=== PATIENT | female | born 1965 | race Caucasian/White ===

== ENCOUNTER → 2016-04-27 | Outpatient (CLI) | payer OTHER ==
[~2016-04-27] MED LIST: ANUSOL-HC SUPPO25 MG RC; ASACOL; ASACOL PO; COLACE 100100 MG/CAP PO; LAMICTAL150 MG PO; LIALDA 1.2 GM1.2 GM PO; LUNESTA3 MG PO; NORCO 325 MG-51 TAB PO; PROMETHAZINE12.5 M5 PO; [UNRECOGNIZED DRUG - REMARK]
== END ==
LOC: BHSO 15:01
DX: F33.1 Major depressive disorder, recurrent, moderate (principal)

== ENCOUNTER → 2016-05-19 | Outpatient (CLI) | payer OTHER | LOC: BHSO 08:17 | DX: F33.1 Major depressive disorder, recurrent, moderate (principal) ==

== ENCOUNTER → 2016-07-01 | Outpatient (CLI) | payer OTHER | LOC: BHSO 11:04 | DX: F33.0 Major depressive disorder, recurrent, mild (principal) ==

== ENCOUNTER → 2016-10-01 | Outpatient (CLI) | payer OTHER | LOC: BHSO 14:59 | DX: F41.1 Generalized anxiety disorder (principal) ==

== ENCOUNTER → 2016-11-06 | Outpatient (CLI) | payer OTHER | LOC: BHSO 10:05 | DX: F41.1 Generalized anxiety disorder (principal) ==

== ENCOUNTER → 2017-02-01 | Outpatient (CLI) | payer OTHER | LOC: BHSO 12:59 | DX: F41.1 Generalized anxiety disorder (principal) ==

== ENCOUNTER → 2017-05-04 | Outpatient (CLI) | payer OTHER | LOC: BHSO 09:09 | DX: F41.1 Generalized anxiety disorder (principal) ==

== ENCOUNTER → 2017-06-29 | Outpatient (CLI) | payer OTHER | LOC: BHSO 13:00 | DX: F41.1 Generalized anxiety disorder (principal) ==

== ENCOUNTER → 2017-07-26 | Outpatient (CLI) | payer OTHER | LOC: BHSO 16:00 | DX: F33.1 Major depressive disorder, recurrent, moderate (principal) ==

== ENCOUNTER → 2017-09-30 | Outpatient (CLI) | payer OTHER | LOC: BHSO 13:54 | DX: F41.1 Generalized anxiety disorder (principal) ==

== ENCOUNTER → 2017-10-08 | Outpatient (CLI) | payer OTHER | LOC: BHSO 15:11 | DX: F41.1 Generalized anxiety disorder (principal) ==

== ENCOUNTER → 2017-10-14 | Outpatient (CLI) | payer OTHER | LOC: BHSO 13:03 | DX: F41.1 Generalized anxiety disorder (principal) ==

== ENCOUNTER → 2017-10-20 | Outpatient (CLI) | payer OTHER | LOC: BHSO 15:59 | DX: F41.1 Generalized anxiety disorder (principal) ==

== ENCOUNTER → 2017-11-02 | Outpatient (CLI) | payer OTHER | LOC: BHSO 15:59 | DX: F41.1 Generalized anxiety disorder (principal) ==

== ENCOUNTER → 2017-11-24 | Outpatient (CLI) | payer OTHER | LOC: BHSO 16:05 | DX: F33.1 Major depressive disorder, recurrent, moderate (principal) ==

== ENCOUNTER → 2017-12-07 | Outpatient (CLI) | payer OTHER | LOC: BHSO 15:08 | DX: F41.1 Generalized anxiety disorder (principal) ==

== ENCOUNTER → 2018-01-10 | Outpatient (CLI) | payer OTHER | LOC: BHSO 16:06 | DX: F41.1 Generalized anxiety disorder (principal) ==

== ENCOUNTER → 2018-02-04 | Outpatient (CLI) | payer OTHER | LOC: BHSO 14:00 | DX: F41.1 Generalized anxiety disorder (principal) ==

== ENCOUNTER → 2018-04-13 | Outpatient (CLI) | payer OTHER | LOC: BHSO 11:05 | DX: F33.1 Major depressive disorder, recurrent, moderate (principal) ==

== ENCOUNTER → 2018-04-25 | Outpatient (CLI) | payer OTHER | LOC: BHSO 16:05 | DX: F33.0 Major depressive disorder, recurrent, mild (principal) ==

== ENCOUNTER → 2018-05-12 | Outpatient (CLI) | payer OTHER | LOC: BHSO 16:28 | DX: F41.1 Generalized anxiety disorder (principal) | CPT/HCPCS: G0463 ==

== ENCOUNTER → 2018-05-13 | Outpatient (CLI) | payer OTHER | LOC: BHSO 16:05 | DX: F41.1 Generalized anxiety disorder (principal) ==

== ENCOUNTER → 2018-09-12 | Outpatient (CLI) | payer OTHER | LOC: BHSO 11:05 | DX: F41.1 Generalized anxiety disorder (principal) ==

== ENCOUNTER → 2018-09-19 | Outpatient (CLI) | payer OTHER | LOC: BHSO 10:54 | DX: F41.1 Generalized anxiety disorder (principal) ==

== ENCOUNTER → 2018-09-29 | Outpatient (CLI) | payer OTHER | LOC: BHSO 15:04 | DX: F41.1 Generalized anxiety disorder (principal) ==

== ENCOUNTER → 2018-10-18 | Outpatient (CLI) | payer OTHER | LOC: BHSO 09:04 | DX: F41.1 Generalized anxiety disorder (principal) ==

== ENCOUNTER → 2018-11-01 | Outpatient (CLI) | payer OTHER | LOC: BHSO 10:06 | DX: F41.1 Generalized anxiety disorder (principal) ==

== ENCOUNTER → 2019-02-10 | Outpatient (CLI) | payer OTHER | LOC: BHSO 16:03 | DX: F41.1 Generalized anxiety disorder (principal) ==

== ENCOUNTER → 2019-03-20 | Outpatient (CLI) | payer OTHER | LOC: BHSO 15:52 | DX: F41.1 Generalized anxiety disorder (principal) ==

== ENCOUNTER 2019-03-26 17:50 | Emergency (ER) | payer OTHER ==
[~2019-03-26] VITALS: Ht 162.6 cm; Wt 55.0 kg
[2019-03-26 18:50] LABS: ALANINE AMINOTRANSFERASE 35 U/L (9-52); ALBUMIN 4.4 gm/dL (3.5-5.0); ALKALINE PHOSPHATASE 70 U/L (50-136); ANION GAP 8 mmol/L (7-16); AST,SGOT 28 U/L (15-37); BILIRUBIN,TOTAL 0.6 mg/dL (0.0-1.0); BLOOD UREA NITROGEN 12 mg/dL (7-17); CALCIUM 9.8 mg/dL (8.4-10.2); CARBON DIOXIDE 24 mmol/L (22-30); CHLORIDE 109 mmol/L (98-107); CREATININE, serum 0.58 (0.52-1.25); GLUCOSE 108 mg/dL (74-106); POTASSIUM 3.8 mmol/L (3.4-5.0); SODIUM 141 mmol/L (137-145)
[2019-03-26 18:51] LABS: C-REACTIVE PROTEIN < 0.5 mg/dL (0.0-0.9)
[2019-03-26 19:21] LABS: BASO % 0.3 % (0.0-2.0); GRAN # 6.2 (1.4-6.5); GRAN % 88.8 % (42.2-75.2); HEMATOCRIT 38.8 % (37.0-47.0); HEMOGLOBIN 12.9 g/dl (12.5-16.0); LYMPH # 0.6 (1.2-3.4); LYMPH % 7.9 % (20.0-51.0); MEAN CELL VOLUME 91 fl (80.0-100.0); MEAN CORPUSCULAR HEMOGLOBIN 30 pg (27.0-31.0); MEAN CORPUSCULAR HGB CONC 33 g/dl (33.0-37.0); MEAN PLATELET VOLUME 9.3 fl (7.4-10.4); MONO # 0.2 (0.1-0.6); MONO % 2.6 % (1.7-9.3); PLATELET COUNT 196 K/mm3 (130-400); RED BLOOD COUNT 4.28 M/mm3 (4.10-5.30); REDCELL DISTRIBUTION WIDTH-CV 12.9 % (11.5-14.5)
[2019-03-26 19:40] VITALS: BP 147/85; PULSE 96; TEMP 98.3
[2019-03-26 19:49] LABS: ERYTHROCYTE SEDIMENTATION RATE 7 mm/hr (0-30)
== END 2019-03-26 19:45 | disposition home or self-care (01) ==
LOC: COL.ER 17:50
PROVIDERS: Emergency Medicine
DX: R51 Headache (principal); Z87.19 Personal history of other diseases of the digestive system
CPT/HCPCS: J1200; J1885; J2550; J3010; J7030

== ENCOUNTER → 2019-05-08 | Outpatient (CLI) | payer OTHER | LOC: BHSO 16:04 | DX: F41.1 Generalized anxiety disorder (principal) ==

== ENCOUNTER → 2019-07-21 | Outpatient (CLI) | payer OTHER | LOC: BHSO 13:00 | DX: F41.1 Generalized anxiety disorder (principal) ==

== ENCOUNTER → 2019-08-09 | Outpatient (CLI) | payer OTHER | LOC: BHSO 10:00 | DX: F41.1 Generalized anxiety disorder (principal) ==

== ENCOUNTER → 2019-08-24 | Outpatient (CLI) | payer OTHER | LOC: BHSO 11:00 | DX: F41.1 Generalized anxiety disorder (principal) ==

== ENCOUNTER → 2019-09-14 | Outpatient (CLI) | payer OTHER | LOC: BHSO 09:14 | DX: F41.1 Generalized anxiety disorder (principal) ==

== ENCOUNTER → 2019-11-02 | Outpatient (CLI) | payer OTHER | LOC: BHSO 10:07 | DX: F41.1 Generalized anxiety disorder (principal) ==

== ENCOUNTER → 2019-11-09 | Outpatient (CLI) | payer OTHER | LOC: BHSO 11:09 | DX: F41.1 Generalized anxiety disorder (principal) ==

== ENCOUNTER 2019-12-24 05:55 | Emergency (ER) | payer OTHER ==
[~2019-12-24] VITALS: Ht 162.6 cm; Wt 55.5 kg
[2019-12-24 05:57] VITALS: TEMP 98.5
[2019-12-24 06:39] LABS: BASO % 0.4 % (0.0-2.0); GRAN # 6.1 (1.4-6.5); GRAN % 78.2 % (42.2-75.2); HEMATOCRIT 40.5 % (37.0-47.0); LYMPH # 1.1 (1.2-3.4); LYMPH % 14.1 % (20.0-51.0); MEAN CELL VOLUME 88 fl (80.0-100.0); MEAN CORPUSCULAR HEMOGLOBIN 30 pg (27.0-31.0); MEAN CORPUSCULAR HGB CONC 35 g/dl (33.0-37.0); MEAN PLATELET VOLUME 9.4 fl (7.4-10.4); MONO # 0.6 (0.1-0.6); PLATELET COUNT 228 K/mm3 (130-400); RED BLOOD COUNT 4.63 M/mm3 (4.10-5.30); REDCELL DISTRIBUTION WIDTH-CV 12.2 % (11.5-14.5)
[2019-12-24 06:58] LABS: ALBUMIN 4.6 gm/dL (3.5-5.0); BILIRUBIN,TOTAL 0.9 mg/dL (0.0-1.0); CALCIUM 10.3 mg/dL (8.4-10.2); CREATININE, serum 0.63 (0.52-1.25); POTASSIUM 3.4 mmol/L (3.4-5.0); TOTAL PROTEIN 7.2 gm/dL (6.4-8.2)
[2019-12-24] MEDS ORDERED: IMITREX 25MG TA25 MG PO (07:07)
[2019-12-24] MEDS ORDERED: COMPAZINE 5MG TA5 MG PO (07:16)
[2019-12-24 07:43] LABS: COLLECTION METHOD CLEAN CATCH
[2019-12-24 07:48] LABS: PH 5 (5-8); SQUAMOUS EPITHELIAL None Seen /hpf; URINE APPEARANCE Clear; URINE BACTERIA None Seen /hpf; URINE BILIRUBIN Negative (NEGATIVE); URINE BLOOD 1+ (NEGATIVE); URINE COLOR Yellow; URINE GLUCOSE Negative (NEGATIVE); URINE KETONE Trace (NEGATIVE); URINE LEUKOCYTE ESTERASE Negative (NEGATIVE); URINE NITRATE Negative (NEGATIVE); URINE PROTEIN(semi-quant) Negative (NEGATIVE); URINE RBC 0-2 /hpf; URINE UROBILINOGEN Negative (NEGATIVE)
[2019-12-24 08:19] VITALS: BP 126/81; PULSE 87
[2019-12-24 09:19] LABS: ERYTHROCYTE SEDIMENTATION RATE 4 mm/hr (0-30)
== END 2019-12-24 08:19 | disposition home or self-care (01) ==
LOC: COL.ER 05:55
PROVIDERS: Emergency Medicine
DX: R51 Headache (principal); R11.2 Nausea with vomiting, unspecified; K51.90 Ulcerative colitis, unspecified, without complications; Z86.69 Personal history of other diseases of the nervous system and sense organs
CPT/HCPCS: J0780; J1200; J1885; J7030

== ENCOUNTER → 2020-02-19 | Outpatient (CLI) | payer OTHER ==
[~2020-02-19] MED LIST changes: +COMPAZINE 5MG TA5 MG PO; +IMITREX 25MG TA25 MG PO
== END ==
LOC: COL.RAD 13:21
DX: G43.909 Migraine, unspecified, not intractable, without status migrainosus (principal); R90.82 White matter disease, unspecified

== ENCOUNTER → 2020-05-02 | Outpatient (CLI) | payer OTHER | LOC: COL.RAD 09:48 | DX: M43.12 Spondylolisthesis, cervical region (principal); M47.812 Spondylosis without myelopathy or radiculopathy, cervical region ==

== ENCOUNTER 2023-10-10 07:30 | Emergency (ER) | payer OTHER ==
[~2023-10-10] VITALS: Ht 162.6 cm; Wt 56.8 kg
[2023-10-10 07:35] VITALS: TEMP 97.9
[2023-10-10] MEDS ORDERED: Ketorolac 30 MG/ML VIAL IV ONE (08:15)
[2023-10-10] MEDS ORDERED: diphenhydrAMINE 50 MG/ML 1 ML VIAL IV ONE (08:15)
[2023-10-10] MEDS ORDERED: NS 1,000 ML IV ONE (08:15)
[2023-10-10 10:10] VITALS: BP 137/74; PULSE 86
== END 2023-10-10 10:10 | disposition home or self-care (01) ==
LOC: COL.ER 07:30
DX: G43.909 Migraine, unspecified, not intractable, without status migrainosus (principal)
CPT/HCPCS: J0780; J1200; J1885; J7030